=== PATIENT | female | born 1985 | race Caucasian/White ===

== ENCOUNTER 2020-04-30 13:13 | Outpatient (CLI) | payer BC, SELFPAY ==
[2020-04-30 14:26] LABS: HIV 1/2 Ab P24 Ag Result Negative (Negative)
[2020-05-03 11:35] LABS: Rapid Plasma Reagin Non-Reactive (NonReactive)
== END 2020-04-30 13:14 | disposition home or self-care (01) ==
PROVIDERS: Visit Provider Obstetrics & Gynecology
DX: Z34.90 Encounter for supervision of normal pregnancy, unspecified, unspecified trimester (principal)
CPT/HCPCS: 36415; 86592; 86703; G0432

== ENCOUNTER 2020-05-11 14:18 | Outpatient (RCR) | payer BC, SELFPAY ==
[2020-05-05 10:03] VITALS: BP 108/56; PULSE 62
--- NOTE | ~2020-05-11 | US_ITS ---
EXAMINATION: US OB BPP wo non-stress DATE: 05/11/2020 15:29 INDICATION: Low baseline. Third trimester . TECHNIQUE: Real-time pelvic ultrasound was performed. The interpreting radiologist was not present fo r the study. COMPARISON: None. FINDINGS: There is a single living fetus in vertex presentation. The placenta is fundal with a few internal an echoic venous lakes.. heart rate is 132 beats per minute (bpm). Amniotic fluid volume is subjec tively normal. Biophysical profile performed by the technologist: breathing (30 sec sustained breathing in 30 minutes): 2 out of 2 movement (3 gross body movements in 30 minutes): 2 out of 2 tone (one episode of giwfelv-cfcdamhqf-dvsbxwq limb movement): 2 out of 2 Amniotic fluid pocket (2 cm): 2 out of 2 Total score: 8 out of 8 IMPRESSION: 1. Single living fetus in vertex presentation with heart rate of 132 bpm. 2. Biophysical profile 8 out of 8. Reviewed, dictated and finalized at location A.
[2020-05-11 15:05] VITALS: BP 104/58; PULSE 59
== END 2020-05-24 08:03 | disposition home or self-care (01) ==
LOC: ANHOBOP 14:18
PROVIDERS: Visit Provider Obstetrics & Gynecology
DX: O09.513 Supervision of elderly primigravida, third trimester (principal); Z3A.36 36 weeks gestation of pregnancy; Z3A.37 37 weeks gestation of pregnancy
CPT/HCPCS: 59025; 76819

== ENCOUNTER 2020-05-21 06:02 | Inpatient (IN) | payer BC, SELFPAY ==
[2020-05-21] VITALS (77 sets, daily range): BP systolic 78–130; BP diastolic 41–78; PULSE 48–73; RESP 16–18; TEMP 36.2–36.6; O2SAT 75–100; BMI 26.0
[2020-05-21] MEDS: LACTATED RINGERS 1,000 ML 125 ML IV CONT ×2 (06:53→09:17)
[2020-05-21] MEDS: OXYTOCIN 30 UNITS/NS 500 ML 30 UNITS/500 ML BAG IV CONT (06:55)
[2020-05-21 06:57] LABS: Basophils Percent Auto 0.4 % (0.2-1.2); Eosinophils Absolute Auto 0.1 K/mm3 (0-0.3); Eosinophils Percent Auto 0.7 % (0-4.4); Hematocrit 39.2 % (37.0-47.0); Hemoglobin 13.4 g/dL (12.0-15.0); Immature Granulocyte Percent A 1.2 % (0-0.5); Lymphocytes Percent Auto 18.8 % (18.3-44.2); Mean Corpuscular HGB Conc 34.2 g/dl (32-36); Mean Corpuscular Hemoglobin 30.7 pg (26-34); Mean Corpuscular Volume 89.9 fl (80-100); Mean Platelet Volume 9.4 fl (7.4-10.4); Monocytes Absolute Auto 0.8 K/mm3 (0.1-0.6); Neutrophils Absolute Auto 5.9 K/mm3 (1.3-6.7); Neutrophils Percent Auto 69.9 % (45.5-73.1); Platelet Count Result 216 k/mm3 (150-375); Red Blood Count 4.36 M/mm3 (4.2-5.4); Red Cell Distribution Width 13.1 % (11.5-14.5); White Blood Count 8.5 K/mm3 (4.5-10.0)
--- NOTE | 2020-05-21 08:43 | PM.IMHP ---
H&P: HPI History of Present Illness Chief complaint: INDUCTION OF LABOR Narrative: Kelle Cheng is a 35 year old female at 39 weeks by LMP 08/22/19 with an EDC May 28 consistent with a 10 week ultasound. PNC significant for advanced gestational age. She has had normal surveillance. She has been counseled regarding risk benefits of induction versus spontaneous labor and desires induction of labor. OBlabs:A+,UA-neg,h/h-, pap- ASCUS negHR HPV. UrCxneg,Hgbelect-HgbA, Rub-Im, Brinda-Im, Zika ab, Vit D -27, HIV neg, HepBsag-neg, HepCab-neg, one hour glucola-99, h/h-.9,third trimester HIV neg, rpr neg, GBS neg. Review of Systems Review of Systems: All systems reviewed & are unremarkable except as noted in HPI and below Constitutional: Constitutional: Reports no additional constitutional complaints and Denies headache(s) Eyes: Eyes: Denies spots in vision ENT: Reports system reviewed and no additional complaints, except as documented and Denies headache(s) Cardiovascular: Cardiovascular: Denies chest pain and Denies dyspnea Respiratory: Respiratory: Denies dyspnea Gastrointestinal: Gastrointestinal: Reports no additional gastrointestinal complaints Genitourinary: Genitourinary: Reports amenorrhea Musculoskeletal: Musculoskeletal: Reports no additional musculoskeletal complaints Integumentary/Breasts: Skin/Breast: Denies breast mass and Denies rash Neurologic: Denies headache(s) Psychiatric: Psychiatric: Reports no additional psychiatric complaints PMFSH Past Medical History Medical History Encounter for supervision of other normal in second trimester Tobacco abuse Family History Family History Grandparent Family history of elevated blood lipids Family history of coronary artery disease Family history of malignant neoplasm of male breast Social History Social History Smoking status: Former smoker Second hand tobacco smoke exposure: No Smoking end date: 11/26/11 Alcohol intake: current Substance use: never Spiritual care concerns: No Meds Home Medications and Allergies Home Medications Medication Instructions Recorded Confirmed Type multivitamin no.47-iron fum 27 1 cap PO DAILY #90 cap 11/29/19 05/21/20 Rx mg-folate no.1 1 mg-dha 300 mg capsule Allergies Allergy/AdvReac Type Severity Reaction Status Date / Time Penicillins Allergy Intermediate Hives Verified 05/18/20 08:22 Vital Signs Vital Signs - 24 hr 05/21/20 06:39 05/21/20 08:04 05/21/20 08:31 Pulse Rate 73 62 58 L Blood Pressure 108/64 121/65 130/78 Exam Const: General: no acute distress Eyes: General: appearance normal, both eyes and all related structures Resp: Effort & Inspection: normal respiratory effort Cardio: Rate: regular rate GI: Other: Gravid no fundal tenderness no right upper quadrant pain : External Female Exam: normal external appearance Manual OB Exam: dilated 3 cm, effaced 75% and station high and -2 Skin: General skin exam: no rashes or lesions noted Neuro: Cognition (Neuro): normal cognition Extrem: General: normal to inspection Psych: Mental Status: mental status grossly normal H&P: Results Labs Labs: Short CBC 05/21/20 Range/Units 06:37 WBC 8.5 (4.5-10.0) K/mm3 Hgb 13.4 (12.0-15.0) g/dL Hct 39.2 (37.0-47.0) % Plt Count 216 (150-375) k/mm3 Assessment and Plan Assessment and plan (1) Elective induction of labor planned: Status: Acute Assessment and Plan: 1. Admit 2. Pitocin induction. 3. Anticipate vaginal delivery.
--- NOTE | 2020-05-21 08:44 | PM.OBPNVD ---
OB - PN: Subj Subjective Date/time seen: 05/21/20 08:44 FHt 130s, Cat 1, ctx q 2-4, cervix 4/75%/-1, AROM clear. Continue Pitocin. OB - PN: Obj Data Labs CBC & Chem 7: 05/21/20 06:37 Labs: Laboratory Results - last 24 hr 05/21/20 05/21/20 06:37 06:37 WBC 8.5 RBC 4.36 Hgb 13.4 Hct 39.2 MCV 89.9 MCH 30.7 MCHC 34.2 RDW 13.1 Plt Count 216 MPV 9.4 Immature Gran % (Auto) 1.2 H Neut % (Auto) 69.9 Lymph % (Auto) 18.8 [place] % (Auto) 9.0 H Eos % (Auto) 0.7 Baso % (Auto) 0.4 Lymph # (Auto) 1.60 [place] # (Auto) 0.8 H Eos # (Auto) 0.1 Baso # (Auto) 0.0 Abs Immat Gran (auto) 0.10 H Absolute Neuts (auto) 5.9 Absolute Nucleated RBC 0.0 Nucleated RBC % 0.0 Blood Type A Positive Antibody Screen Negative OB - PN A/P Time Spent With Patient Time: Total time spent is greater than 50% in coordination of care (as documented) at patient's floor/unit and/or counseling patient:
--- NOTE | 2020-05-21 08:59 | WPDANESEPP ---
Anes - Eval Pre Procedure Procedure: Labor Pain Management Date/Time: 05/21/20 08:59 Preop Diagnosis: Pain During Labor Pre Op Diagnosis: INDUCTION OF LABOR Patient Data Age: 35 Gender: F Height: Weight: Last Vital Signs Pulse 58 L 05/21/20 08:31 BP 130/78 05/21/20 08:31 Allergies Allergy/AdvReac Type Severity Reaction Status Date / Time Penicillins Allergy Intermediate Hives Verified 05/18/20 08:22 Home Medications Medication Instructions Recorded Confirmed Type multivitamin no.47-iron fum 27 1 cap PO DAILY #90 cap 11/29/19 Rx mg-folate no.1 1 mg-dha 300 mg capsule Laboratory Tests 05/21/20 05/21/20 05/21/20 06:37 06:37 06:37 WBC 8.5 K/mm3 K/mm3 (4.5-10.0) RBC 4.36 M/mm3 M/mm3 (4.2-5.4) Hgb 13.4 g/dL g/dL (12.0-15.0) Hct 39.2 % % (37.0-47.0) MCV 89.9 fl fl (80-100) MCH 30.7 pg pg (26-34) MCHC 34.2 g/dl g/dl (32-36) RDW 13.1 % % (11.5-14.5) Plt Count 216 k/mm3 k/mm3 (150-375) MPV 9.4 fl fl (7.4-10.4) Immature Gran % (Auto) 1.2 % H % (0-0.5) Neut % (Auto) 69.9 % % (45.5-73.1) Lymph % (Auto) 18.8 % % (18.3-44.2) [place] % (Auto) 9.0 % H % (2.6-8.5) Eos % (Auto) 0.7 % % (0-4.4) Baso % (Auto) 0.4 % % (0.2-1.2) Lymph # (Auto) 1.60 K/mm3 K/mm3 (0.9-3.2) [place] # (Auto) 0.8 K/mm3 H K/mm3 (0.1-0.6) Eos # (Auto) 0.1 K/mm3 K/mm3 (0-0.3) Baso # (Auto) 0.0 K/mm3 K/mm3 (0.0-0.1) Abs Immat Gran (auto) 0.10 K/mm3 H K/mm3 (0.00-0.031) Absolute Neuts (auto) 5.9 K/mm3 K/mm3 (1.3-6.7) Absolute Nucleated RBC 0.0 K/mm3 K/mm3 (0.0-0.012) Nucleated RBC % 0.0 % % (0.0-0.2) RPR Pending Blood Type A Positive Antibody Screen Negative : gestational age (EDC 05/28/20) Patient hx anesthesia problems: none Family hx anesthesia problems: none PMFSH Past Medical History Medical History (Updated 05/21/20 @ 09:01 by Vivian Matthew CRNA) Encounter for supervision of other normal in second trimester Tobacco abuse Social History Social History Smoking status: Former smoker Second hand tobacco smoke exposure: No Smoking end date: 11/26/11 Alcohol intake: current Substance use: never Spiritual care concerns: No Exam Day of Procedure 05/21/20 08:59
--- NOTE | 2020-05-21 10:06 | LDADM ---
This patient, Kelle Cheng, was admitted to Labor/Delivery/Recovery 108 on 05/21/20 at 06:02. Plans for labor, pain management and were discussed with patient. Patient/family oriented to hospital policies and general routines including ID bracelet, bed and alarms, visiting hours, pain management, procedures, bathroom and other care routines, personal items, smoking policy, room service/diet and guest tray routines, infant security routines, call light, and visiting hours. Patient/Family are encouraged to report perceived risks to care and to ask questions if they do not understand what they are told or what they should do. See OBIX for further documentation.
[2020-05-21 10:46] LABS: Rapid Plasma Reagin Non-Reactive (NonReactive)
--- NOTE | 2020-05-21 12:49 | PM.OBPNVD ---
OB - PN: Subj Subjective Date/time seen: 05/21/20 1110 FHT 135, Cat 1, cervix 7/70%/-1, OT. Continue Pitocin induction. OB - PN: Obj Data Labs CBC & Chem 7: 05/21/20 06:37 Labs: Laboratory Results - last 24 hr 05/21/20 05/21/20 05/21/20 06:37 06:37 06:37 WBC 8.5 RBC 4.36 Hgb 13.4 Hct 39.2 MCV 89.9 MCH 30.7 MCHC 34.2 RDW 13.1 Plt Count 216 MPV 9.4 Immature Gran % (Auto) 1.2 H Neut % (Auto) 69.9 Lymph % (Auto) 18.8 [place] % (Auto) 9.0 H Eos % (Auto) 0.7 Baso % (Auto) 0.4 Lymph # (Auto) 1.60 [place] # (Auto) 0.8 H Eos # (Auto) 0.1 Baso # (Auto) 0.0 Abs Immat Gran (auto) 0.10 H Absolute Neuts (auto) 5.9 Absolute Nucleated RBC 0.0 Nucleated RBC % 0.0 RPR Non-reactive Blood Type A Positive Antibody Screen Negative OB - PN A/P Time Spent With Patient Time: Total time spent is greater than 50% in coordination of care (as documented) at patient's floor/unit and/or counseling patient:
--- NOTE | 2020-05-21 12:50 | PM.OBPRVD ---
OB - Delivery Note Procedure Delivery date: 05/21/20 Procedure: Spontaneous vaginal delivery Intrapartal events: None Induction method: per pitocin protocol Delivery monitor: external FHT Route of delivery: Episiotomy description: None Laceration description: None Specimen: No Estimated blood loss (mL): 150 Anesthesia type: Epidural Disposition: floor Complications: None Narrative: Patient admitted for medical induction of labor. Pitocin was started. She had assisted rupture of membranes at approximately at 0836. She progressed into active labor. She dilated to complete. She pushed three times and delivered a female at 1241. There was a tight nuchal cord x 2 surgically reduced. was placed on maternal abdomen crying vigorously. Cord gases and cord blood obtained. Placenta delivered spontaneously and intact. No perineal lacerations. She tolerated procedure well. Baby Date of : 05/21/20 Time of : 12:41 Weeks of gestation at delivery: 39 Infant gender: Female Weight (pounds): 7 Weight (ounces): 0 presentation: vertex position: Left Occiput Anterior Placenta delivery description: Spontaneous cord vessel description: 3 Vessels, Nuchal Cord (x2) and Tight score one minute: 9 score five minutes: 9
[2020-05-21] MEDS: OXYTOCIN 30 UNITS/NS 500 ML 30 UNITS/500 ML BAG 125 UNITS IV CONT (13:23)
[2020-05-21] MEDS: IBUPROFEN 600 MG TABLET PO ×2 (14:49→21:58)
[2020-05-22] MEDS: IBUPROFEN 600 MG TABLET PO (04:04)
[2020-05-22 05:33] LABS: Hematocrit 37.6 % (37.0-47.0); Hemoglobin 12.6 g/dL (12.0-15.0)
--- NOTE | 2020-05-22 07:57 | PM.OBPNVD ---
OB - PN: Subj Subjective Date/time seen: 05/22/20 07:57 Patient comments: pain well controlled, tolerating diet and other (Decreasing lochia.) baby status: doing well and nursing well [place] feeding status: exclusively breast feeding OB - PN: Obj Data Labs CBC & Chem 7: 05/22/20 04:11 Labs: Laboratory Results - last 24 hr 05/21/20 05/21/20 05/22/20 06:37 06:37 04:11 Hgb 12.6 Hct 37.6 RPR Non-reactive Blood Type A Positive Antibody Screen Negative OB - PN A/P Plan day: 1 Plan: routine care Comments: Patient doing well. Discharge home today. Discharge precautions discussed. Time Spent With Patient Time: Total time spent is greater than 50% in coordination of care (as documented) at patient's floor/unit and/or counseling patient: Exam Psych: Affect: normal affect Other: Abd: fundus firm below umbilicus, nontender Perineum: healing Ext: nontender
[2020-05-22 08:00] VITALS: BP 110/62; PULSE 72; RESP 18; TEMP 36.6; O2SAT 100
--- NOTE | 2020-05-22 08:00 | PC.NURSE ---
PT introductions made and plan of care discussed per post , pain management, breast feeding, daily care activities and pending discharge to home. PT verbalized understanding of such care.
--- NOTE | 2020-05-22 08:04 | P.DS_ITS ---
DS: Admitting Diagnosis Admitting Diagnosis Admitting Diagnosis: 1. Medical induction of labor OB - DS: Summary OB Procedures : NST OB Procedures Intrapartum: Spontaneous Vag Delivery OB Procedures: : None Time Spent with Patient Time attestation: Total time spent providing and/or coordinating discharge services: Exam Psych: Affect: normal affect Other: Abd: fundus firm below umbilicus, nontender Perineum: healing Ext: nontender DS: Data Data Completed and Pending Labs on day of discharge: Labs from last 24 hours 05/22/20 05/21/20 05/21/20 04:11 06:37 06:37 Hgb 12.6 Hct 37.6 RPR Non-reactive Blood Type A Positive Antibody Screen Negative Discharge Plan Discharge Attending physician on discharge: Pk Myers Discharging Clinician: Pk Myers Patient Disposition: Home, Self-Care Activity: pelvic rest Diet: regular Patient Instructions: Antibiotic Form Stand Alone Forms: General Discharge Information Follow-up/Referrals: Pk Myers MD [Physician] - 4 Weeks (Call for appointment) Discharge Medications: Continued PNV-DHA 27 mg iron-1 mg -300 mg capsule 1 cap PO DAILY Qty: 90 RF: 3 Date of admission: 05/21/20 06:02 Primary Care Provider: [facility] Admitting Provider: Pk Myers Attending physician on admission: Pk Myers
--- NOTE | 2020-05-22 10:08 | WPDANLDPN2 ---
Anes-Prog Note L&D Date/Time: 05/22/20 10:08 Comfortable throughout: labor and delivery Neuraxial method: epidural Epidural/Spinal procedure site: clean & non-tender Neuro status: Neuro function grossly intact. Cardiovascular status: normal Respiratory status: normal Airway patency: baseline Mental status: baseline Post-Op hydration status: normal Vital Signs: Last Vital Signs Temp 36.2 C L 05/21/20 20:00 Pulse 55 L 05/21/20 20:00 Resp 18 05/21/20 20:00 BP 108/53 L 05/21/20 20:00 Pulse Ox 100 05/21/20 20:00 Pain score (VAS): 0/10. Patient resting in bed at time of assessment, appears comfortable. Post-procedural complaints: none Patient feedback: Patient satisfied with anesthetic care.
--- NOTE | 2020-05-22 13:00 | PC.NURSE ---
PT received discharge instructions per protocol and verbalized understanding of such care.
--- NOTE | 2020-05-22 13:35 | PC.NURSE ---
PT discharged to home ambulatory accompanied by both fob and and taken to waiting car. Follow up appts confirmed
[2020-05-24 07:50] VITALS: BP 107/58; PULSE 67; RESP 16; TEMP 36.6; O2SAT 98
== END 2020-05-22 13:35 | disposition home or self-care (01) | DRG 807 ==
LOC: ANHLDR 06:06 → ANHOB2 16:09
PROVIDERS: Admitting Provider Obstetrics & Gynecology; Visit Provider Obstetrics & Gynecology
DX: O69.1XX0 Labor and delivery complicated by cord around neck, with compression, not applicable or unspecified (principal); Z37.0 Single live birth; Z3A.39 39 weeks gestation of pregnancy
CPT/HCPCS: 36415; 85014; 85018; 85025; 86592; 86850; 86900; 86901; A9270; J2590; J2795; J7120